=== PATIENT | female | born 1975 ===

== ENCOUNTER 2016-07-03 07:18 | Emergency (ER) | payer MEDICARE ==
[2016-07-03 07:18] VITALS: BMI 21.9
[2016-07-03 07:38] VITALS: RESP 18; TEMP 98.1
[2016-07-03] MEDS ORDERED: Sodium Chloride 0.9% 500 ML IV STA (07:52)
--- NOTE | 2016-07-03 08:05 | ED PDOC ---
Arrival/HPI - General Chief Complaint: Abdominal Pain Time Seen by Provider: 07/03/16 07:41 Historian: Patient - History of Present Illness Narrative History of Present Illness (Text): 07/03/16 08:02 Nuvia Corey is a 40 year old female, with a history of appendicitis and nephrolithiasis, presents to the emergency department complaining of right lower quadrant abdominal pain for past 3 days. Notes that pain radiates to the right lower back. Then the right back pain also radiates down the right leg. These pains are constant and worsened with movement. Reports that she took Motrin for the pain for minimal relief. Denies any fever, chills, nausea, vomiting, diarrhea, urinary symptoms, or any other complaints at this time. 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 worker - Integumentary Hx Dermatological Disorder: Yes (DERMATOMYOSITIS) - Musculoskeletal/Rheumatological Hx Falls: No - Genitourinary/Gynecological Hx Reproductive Disorders: No Hx Sexually Transmitted Diseases: No Hx Urinary Tract Infection: No - Psychiatric Hx Substance Use: No - Surgical History Hx Appendectomy: Yes Other/Comment: Ovarian Cystectomy - Suicidal Assessment Feels Threatened In Home Enviroment: No Family/Social History - Physician Review Nursing Documentation Reviewed: Yes Family/Social History: No Known Family HX Smoking Status: Never Smoked Hx Alcohol Use: No Hx Substance Use: No Allergies/Home Meds Allergies/Adverse Reactions: Allergies No Known Allergies Allergy (Verified 07/03/16 07:38) Home Medications: Home Meds Medication Instructions Recorded Confirmed Acetaminophen/Hydrocodone Bi 1 tab PO Q6 PRN 12/09/13 05/30/14 [Hydrocodone Bitartrate/APAP 325 mg-5 mg] Alendronate Sodium [Binosto] 70 mg PO SAT 12/09/13 05/30/14 Amlodipine Besylate 2.5 mg PO DAILY 12/09/13 05/30/14 Hydrochlorothiazide 12.5 mg PO DAILY 12/09/13 05/30/14 Immun Glob G (IgG)/Gly/Iga 50+ 500 mg IV Q30D 12/09/13 05/30/14 [Gamunex-C] Prednisone 8 mg PO DAILY 12/09/13 05/30/14 azaTHIOprine [Imuran] 1 tab PO BID 12/09/13 05/30/14 Review of Systems - Physician Review All systems were reviewed & negative as marked: Yes - Review of Systems Constitutional: Normal. absent: Fatigue, Fevers Gastrointestinal: Abdominal Pain (RLQ ). absent: Diarrhea, Nausea, Vomiting Musculoskeletal: Back Pain Neurological: Normal. absent: Headache, Dizziness Psychiatric: Normal Physical Exam Vital Signs Reviewed: Yes Vital Signs Temp Pulse Resp BP Pulse Ox 07/03/16 11:20 79 18 103/65 99 07/03/16 10:07 80 18 101/66 99 07/03/16 07:32 98.1 F 93 H 18 121/82 97 07/03/16 07:18 98.1 F 93 H 18 121/82 97 Temperature: Afebrile Blood Pressure: Normal Pulse: Regular Respiratory Rate: Normal Appearance: Positive for: Well-Appearing, Non-Toxic, Comfortable Pain Distress: None Mental Status: Positive for: Alert and Oriented X 3 - Systems Exam Head: Present: Atraumatic, Normocephalic Pupils: Present: PERRL Conjunctiva: Present: Normal Respiratory/Chest: Present: Clear to Auscultation, Good Air Exchange. No: Respiratory Distress, Accessory Muscle Use Cardiovascular: Present: Regular Rate and Rhythm, Normal S1, S2. No: Murmurs Abdomen: Present: Tenderness (abdominal tenderness (R > L) ), Normal Bowel Sounds. 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 No: Vaginal Discharge, Vaginal Bleeding, Adenexal Mass Back: Present: Pain with Leg Raise, Other (Right lumber tenderness ). No: CVA Tenderness, Midline Tenderness Upper Extremity: Present: Normal Inspection, Normal ROM, NORMAL PULSES Lower Extremity: Present: Normal Inspection, NORMAL PULSES, Normal ROM Neurological: Present: GCS=15, CN II-XII Intact, Speech Normal Skin: Present: Warm, Dry, Normal Color. No: Rashes Psychiatric: Present: Alert, Oriented x 3, Normal Insight, Normal Concentration Medical Decision Making ED Course and Treatment: 07/03/16 08:07 Impression: A 40 year old female who presents to the emergency department complaining of right lower quadrant abdominal pain radiating to the back and leg for past 3 days. DDx: Ovarian cyst vs torsion vs Lumbar Strain/Sciatica vs Kidney Stone Plan: -- Labs -- Chlamydia GC -- IV fluids -- Urinalysis -- Urine culture -- Renal ultrasound -- Transvaginal ultrasound -- Reassess and disposition Progress Notes: 07/03/16 12:48 Renal Ultrasound reviewed: IMPRESSION: No definitive shadowing renal calculi on this exam apparent. Transvaginal US reviewed: IMPRESSION: Persistent, similar-appearing complex right ovarian cystic mass as detailed above. Please note that a torsion is not ruled in or ruled out based on these images. There is some peripheral flow to both ovaries there is no significant appearing flow to the central portion of the right ovary. This similar flow appearance is noted on the 2014 study Case was discussed with CORINNE Pop, who states that she can follow up with him as an outpatient tomorrow at 11:30 for a 12 noon appointment. After discussing the case we agreed there was no acute intervention needed. This mass was previously there on an ultrasound from 2014 as noted on the study report. 07/03/16 12:51 On reevaluation the patient feels better and is in no acute distress. Symptoms are most consistent with sciatica pain but also pain from ovarian pathology. I have discussed the results and plan with the patient, who expresses understanding. Patient given the opportunity to ask question, all questions were answered and there is agreement with the plan to discharge the patient home. Patient is stable for discharge. Patient was instructed to follow up with physician/clinic in 1-2 days or return if symptoms persist/worsen or new concerning symptoms arise. - Lab Interpretations Lab Results: 07/03/16 08:00 07/03/16 08:00 Lab Results 07/03/16 08:00: WBC 6.3, RBC 4.58, Hgb 12.1, Hct 36.0, MCV 78.6 L, MCH 26.4, MCHC 33.6, RDW 14.5, Plt Count 303, MPV 9.6, Gran % 58.6, Lymph % (Auto) 32.3, [place] % (Auto) 5.9, Eos % (Auto) 2.7, Baso % (Auto) 0.5, Gran # 3.70, Lymph # 2.0 , [place] # 0.4, Eos # 0.2, Baso # 0.03, Sodium 135, Potassium 4.3, Chloride 102, Carbon Dioxide 26, Anion Gap 11, BUN 9, Creatinine 0.6, Est GFR ( Amer) > 60, Est GFR (Non-Af Amer) > 60, Random Glucose 91, Calcium 8.8, Total Bilirubin 0.4, AST 35, ALT 29, Alkaline Phosphatase 53, Total Protein 8.2, Albumin 4.0, Globulin 4.2, Albumin/Globulin Ratio 1.0 L, Urine Color Yellow, Urine Appearance Clear, Urine pH 6.5, Ur Specific [place] 1.010, Urine Protein Negative, Urine Glucose (UA) Negative, Urine Ketones Negative, Urine Blood Negative, Urine Nitrate Negative, Urine Bilirubin Negative, Urine Urobilinogen 0.2, Ur Leukocyte Esterase Small H, Urine RBC Negative, Urine WBC 2 - 5, Ur Epithelial Cells 0 - 2, Urine HCG, Qual Negative I have reviewed the lab results: Yes Interpretation: All labs normal - RAD Interpretation Narrative RAD Interpretations (Text): PROCEDURE: Ultrasound of the Kidneys FINDINGS: RIGHT KIDNEY: Measures: 8.5 x 3.0 x 4.4 cm. Normal in size, contour and echogenicity. No definitive shadowing stone, solid mass lesion or hydronephrosis visualized. LEFT KIDNEY: Measures: 10.0 x 4.8 x 4.8 cm. Normal in size, contour and echogenicity. No definitive shadowing stone, solid mass lesion or hydronephrosis visualized. OTHER FINDINGS: None. IMPRESSION: No definitive shadowing renal calculi on this exam apparent. Prior CT abdomen and pelvic report noted HISTORY: right adnexal tender r/o torsion r/o ovarian cyst FINDINGS: UTERUS: Measures 6.2 x 3.1 x 4.1 cm. The uterus is anteverted. Normal in size and appearance. No fibroid or other mass lesion seen. ENDOMETRIUM: Measures 4.7 mm in diameter. Unremarkable. CERVIX: No cervical abnormality identified. RIGHT OVARY: Measures 4.4 x 2.9 x 5.1 cm. As before, there is a a complex right ovarian cyst which now measures 2.5 x 2.1 x 2.2 cm Although it visually appears similar measurements are slightly smaller on the current exam There is mostly flow peripheral around this complex right ovarian cyst with little if any flow in the low level echoes within it . As noted before a right hemorrhagic cyst or right endometrioma with blood products within it is a consideration The flow around the right complex ovarian cyst is similar to increased compared to the left ovary on the current study. Torsion is not ruled in or ruled out. The findings are nonspecific . Continued clinical follow-up recommended LEFT OVARY: Measures 2.7 x 2.0 x 2.3 cm. No solid mass. Normal flow. FREE FLUID: No significant free fluid noted. OTHER FINDINGS: None. IMPRESSION: Persistent, similar-appearing complex right ovarian cystic mass as detailed above. Please note that a torsion is not ruled in or ruled out based on these images. There is some peripheral flow to both ovaries there is no significant appearing flow to the central portion of the right ovary. This similar flow appearance is noted on the 2014 study Radiology Orders: 07/03/16 07:58 TRANSVAGINAL [US] Stat 07/03/16 07:59 RENAL [US] Stat Human Capital Consultant: Radiologist - Medication Orders Current Medication Orders: Discontinued Medications Sodium Chloride (Sodium Chloride 0.9%) 500 mls @ 1,000 mls/hr IV .Q30M STA Stop: 07/03/16 08:21 Last Admin: 07/03/16 08:07 Dose: 1,000 MLS/HR eMAR Start Stop Document 07/03/16 08:07 SRE (Rec: 07/03/16 08:08 [email or web address] [id number]) Intravenous Solution Start Date 07/03/16 Start Time 08:00 End Date 07/03/16 End time 08:30 Total Infusion Time 30 Ketorolac Tromethamine (Toradol) 30 mg IVP STAT STA Stop: 07/03/16 08:39 Last Admin: 07/03/16 09:17 Dose: 30 MG IVP Administration Document 07/03/16 09:17 SRE (Rec: 07/03/16 09:17 [email or web address] [id number]) Charges for Administration # of IVP Administrations 1 - Scribe Statement The provider has reviewed the documentation as recorded by the Muluibe Rosita Freire Provider Attestation: All medical record entries made by the Scribe were at my direction and personally dictated by me. I have reviewed the chart and agree that the record accurately reflects my personal performance of the history, physical exam, medical decision making, and the department course for this patient. I have also personally directed, reviewed, and agree with the discharge instructions and disposition. Disposition/Present on Arrival - Present on Arrival Any Indicators Present on Arrival: No History of DVT/PE: No History of Uncontrolled Diabetes: No Urinary Catheter: No History of Decub. Ulcer: No History Surgical Site Infection Following: None - Disposition Have Diagnosis and Disposition been Completed?: Yes Diagnosis: Ovarian cyst, Ovarian mass, right, Sciatica of right side Disposition: HOME/ ROUTINE Disposition Time: 12:10 Patient Plan: Discharge Patient Problems: Current Active Problems Problem Status Diagnosed Abdominal pain Acute Hemorrhagic ovarian cyst Acute Pyelonephritis Acute Urinary tract infection Acute Condition: IMPROVED Discharge Instructions (ExitCare): Ovarian Cyst (ED), Sciatica (ED) Additional Instructions: Mr Corey, thank you for letting us take care of you today. Your provider was Dr. Murillo. You were treated for Sciatica, Ovarian Mass/Cyst. The emergency medical care you received today was directed at your acute symptoms. If you were prescribed any medication, please fill it and take as directed. It may take several days for your symptoms to resolve. Return to the Emergency Department if your symptoms worsen, do not improve, or if you have any other problems. Please contact your doctor or call one of the physicians/clinics you have been referred to that are listed on the Patient Visit Information form that is included in your discharge packet. Bring any paperwork you were given at discharge with you along with any medications you are taking to your follow up visit. Our treatment cannot replace ongoing medical care by a primary care provider (PCP) outside of the emergency department. Make sure to follow up with Dr. Viera tomorrow. Go to his office at 11:30am and he can see you by 12 noon. Thank you for allowing the [facility] team to be part of your care today. If you had an X-Ray or CT scan: A Radiologist will review the ED reading if any change in treatment is needed we will contact you. If you had a blood, urine, or wound culture: It will take several days for the results, if any change in treatment is needed we will contact you. If you had an STI test: It will take 48 hours for the results. Please call after 1 week if you have not heard back. Prescriptions: Cyclobenzaprine [Flexeril] 5 mg PO Q8 PRN #14 tab PRN Reason: Muscle Spasm Naproxen 500 mg PO BID PRN #30 tab PRN Reason: Pain, Moderate (4-7) Referrals: Waldo Viera MD [Staff Provider] - Follow up with primary Imelda Godwin DO [Primary Care Provider] - Follow up with primary Forms: WORK NOTE
[2016-07-03 08:14] LABS: ADD MANUAL DIFF? NO
[2016-07-03 08:23] LABS: BASO # 0.03 K/mm3 (0.0-2.0); BASO % 0.5 % (0.0-3.0); EOS # 0.2 (0.0-0.7); EOS % 2.7 % (1.5-5.0); GRAN % 58.6 % (50.0-68.0); LYMPH % 32.3 % (22.0-35.0); MEAN CELL VOLUME 78.6 fL (80.0-105.0); MEAN CORPUSCULAR HEMOGLOBIN 26.4 pg (25.0-35.0); MEAN CORPUSCULAR HGB CONC 33.6 g/dl (31.0-37.0); MEAN PLATELET VOLUME 9.6 fl (7.0-11.0); MONO # 0.4 (0.1-0.6); MONO % 5.9 % (1.0-6.0); PLATELET COUNT 303 10^3/uL (120.0-450.0); RED CELL DISTRIBUTION WIDTH 14.5 % (11.5-14.5); WHITE BLOOD COUNT 6.3 10^3/ul (4.5-11.0)
[2016-07-03 08:27] LABS: PH,URINE 6.5 (4.7-8.0); URINE BILIRUBIN NEGATIVE (NEGATIVE); URINE BLOOD NEGATIVE (NEGATIVE); URINE GLUCOSE (UA) NEGATIVE (NEGATIVE); URINE KETONE NEGATIVE (NEGATIVE); URINE LEUKOCYTE ESTERASE SMALL Leu/uL (NEGATIVE); URINE PROTEIN NEGATIVE mg/dL (<30 mg/dL); URINE UROBILINOGEN 0.2 E.U./dL (<1 E.U./dL)
[2016-07-03 08:34] LABS: URINE APPEARANCE CLEAR (CLEAR); URINE COLOR YELLOW (YELLOW)
[2016-07-03 08:36] LABS: ALKALINE PHOSPHATASE 53 U/L (38-133); ALT/SGPT 29 U/L (7-56); AST/SGOT 35 U/L (15-39); BILIRUBIN,TOTAL 0.4 mg/dL (0.2-1.3); BLOOD UREA NITROGEN 9 mg/dL (7-21); CALCIUM 8.8 mg/dL (8.4-10.5); CARBON DIOXIDE 26 mmol/L (21-33); CHLORIDE 102 mmol/L (98-107); GFR AFRICAN-AMERICAN > 60; GLUCOSE,RANDOM 91 mg/dL (70-110); POTASSIUM 4.3 mmol/L (3.6-5.0); SODIUM 135 mmol/L (132-148); TOTAL PROTEIN 8.2 g/dL (5.8-8.3)
[2016-07-03 08:41] LABS: URINE EPITHELIAL CELLS 0 - 2 /hpf (0-5); URINE RBC NEGATIVE /hpf (0-2)
[2016-07-03 10:09] VITALS: O2SAT 99
--- NOTE | 2016-07-03 10:23 | US ---
HISTORY: right adnexal tender r/o torsion r/o ovarian cyst COMPARISON: 12/10/2013 TECHNIQUE: Transvaginal technique was utilized. Very limited trans abdominal survey noted FINDINGS: UTERUS: Measures 6.2 x 3.1 x 4.1 cm. The uterus is anteverted. Normal in size and appearance. No fibroid or other mass lesion seen. ENDOMETRIUM: Measures 4.7 mm in diameter. Unremarkable. CERVIX: No cervical abnormality identified. RIGHT OVARY: Measures 4.4 x 2.9 x 5.1 cm. As before, there is a a complex right ovarian cyst which now measures 2.5 x 2.1 x 2.2 cm Although it visually appears similar measurements are slightly smaller on the current exam There is mostly flow peripheral around this complex right ovarian cyst with little if any flow in the low level echoes within it . As noted before a right hemorrhagic cyst or right endometrioma with blood products within it is a consideration The flow around the right complex ovarian cyst is similar to increased compared to the left ovary on the current study. Torsion is not ruled in or ruled out. The findings are nonspecific . Continued clinical follow-up recommended LEFT OVARY: Measures 2.7 x 2.0 x 2.3 cm. No solid mass. Normal flow. FREE FLUID: No significant free fluid noted. OTHER FINDINGS: None. IMPRESSION: Persistent, similar-appearing complex right ovarian cystic mass as detailed above. Please note that a torsion is not ruled in or ruled out based on these images. There is some peripheral flow to both ovaries there is no significant appearing flow to the central portion of the right ovary. This similar flow appearance is noted on the 2013 study .
--- NOTE | 2016-07-03 10:31 | US ---
PROCEDURE: Ultrasound of the Kidneys HISTORY: right abd pain r/o kidney stone COMPARISON: Abdominal ultrasound 12/09/2013. CT abdomen and pelvis without p.o. or oral IV contrast 12/09/2013 reported a 3 mm nonobstructing stone in left kidney. TECHNIQUE: Sonogram of the kidneys. FINDINGS: RIGHT KIDNEY: Measures: 8.5 x 3.0 x 4.4 cm. Normal in size, contour and echogenicity. No definitive shadowing stone, solid mass lesion or hydronephrosis visualized. LEFT KIDNEY: Measures: 10.0 x 4.8 x 4.8 cm. Normal in size, contour and echogenicity. No definitive shadowing stone, solid mass lesion or hydronephrosis visualized. OTHER FINDINGS: None. IMPRESSION: No definitive shadowing renal calculi on this exam apparent. Prior CT abdomen and pelvic report noted
[2016-07-03 11:20] VITALS: BP 103/65; PULSE 79
== END 2016-07-03 12:10 | disposition home or self-care (01) ==
LOC: ED 07:18
DX: M54.31 Sciatica, right side (principal); N83.201 Unspecified ovarian cyst, right side; N83.8 Other noninflammatory disorders of ovary, fallopian tube and broad ligament
CPT/HCPCS: 76770; 76830; 80053; 81001; 84703; 85025; 87086; 87491; 87591; 96374; 99284; J1885; J7040